=== PATIENT | female | born 1975 | race Caucasian/White ===

== ENCOUNTER 2020-11-04 09:41 | Outpatient (CLI) | payer BC ==
--- NOTE | 2020-11-04 11:11 | Ultrasound Report ---
PROCEDURE: Abdomen Complete INDICATIONS: ABN LIVER FUNCTION TESTS, EPIGASTRIC PAIN TECHNIQUE: Real-time scanning was performed of the abdominal and retroperitoneal organs, with image documentatio n. COMPARISON: None. FINDINGS: Liver: Liver is normal in size and homogeneous in echotexture. Gallbladder: Status post cholecystectomy. Biliary ducts: Mildly dilated intrahepatic and extra hepatic biliary duct, not unexpected in the post cholecystectomy setting. Pancreas: Mostly obscured by overlying bowel gas. Visualized portions of the pancreas are sonographi marycruz normal. Spleen: Spleen is normal in size and homogeneous in echotexture. Kidneys: Both kidneys normal in size and appearance. Aorta: Visualized aorta is normal in caliber at less than 3 cm. Iliacs: Proximal common iliac arteries are normal in caliber at less than 2.5 cm. IVC: Intrahepatic inferior vena cava is patent. Miscellaneous: No free abdominal fluid. IMPRESSION: Status post cholecystectomy. Mild intrahepatic and extra hepatic biliary ductal dilatation, likely re flective of postcholecystectomy reservoir phenomenon. Biliary tract obstruction is considered unlikel y although if there is clinical evidence of either biliary colic or choledocholithiasis, MRCP could b e considered. Reviewed by: Omari Stanford MD on 11/04/2020 11:10 AM PST Approved by: Omari Stanford MD on 11/04/2020 11:10 AM PST Station ID: [id number]
== END 2020-11-04 09:42 | disposition home or self-care (01) ==
LOC: DI 09:41
PROVIDERS: ATTEND Physician Assistant
DX: R94.5 Abnormal results of liver function studies (principal); R10.13 Epigastric pain; R63.4 Abnormal weight loss; Z90.49 Acquired absence of other specified parts of digestive tract

== ENCOUNTER 2021-08-06 18:10 | Emergency (ER) | payer BC ==
[2021-08-06] MEDS ORDERED: EPINEPHrine 1 MG/ML AMP IM STA (18:27)
[2021-08-06] MEDS ORDERED: DEXAMETHASONE 10 MG/ML VIAL IVP STA (18:27)
--- NOTE | 2021-08-06 18:29 | ED Physician Documentation ---
History of Present Illness - Stated complaint Stated Complaint: HIVES, SWOLLEN TONGUE & LIP - Chief complaint Chief Complaint: Allergic Rx - History obtained from History obtained from: Patient - Additonal information Additional information: 46-year-old woman without known allergies awoke at 3 this morning with migratory swelling especially of the lower lip and feeling like her voice is changed as w ell as itching all over and hives. Denies GI complaints. Not sure what caused it. No known allergens. She ate tomato and avocado before going to bed last night but that is not atypical for her. Review of Systems Constitutional: reports: Reviewed and negative Ears: reports: Reviewed and negative Nose: reports: Reviewed and negative Respiratory: reports: Reviewed and negative PD PAST MEDICAL HISTORY - Present Medications Home Medications: Ambulatory Orders Medication Instructions Recorded Confirmed EPINEPHrine [Epinephrine] 0.3 mg IJ ONCE PRN #2 syr 08/06/21 predniSONE [Deltasone] 60 mg PO DAILY 5 Days #15 tablet 08/06/21 - Allergies Allergies/Adverse Reactions: Allergies Allergy/AdvReac Type Severity Reaction Status Date / Time No Known Drug Allergies Allergy Verified 08/06/21 18:26 PD ED PE NORMAL - Vitals Vital signs reviewed: Yes - General General: Alert and oriented X 3, No acute distress - HEENT HEENT: Other (No current angioedema of the visualized lips or throat, that said she has a sensation of her voice being changed. She does have conjunctival injection.) - Neck Neck: Supple, no meningeal sign, No bony TTP - Cardiac Cardiac: RRR, No murmur - Respiratory Respiratory: No respiratory distress, Clear bilaterally - Abdomen Abdomen: Normal bowel sounds, Soft, Non tender - Derm Derm: Other (diffuse hives) - Neuro Neuro: Alert and oriented X 3, Normal speech Results - Vitals Vitals: Vital Signs - 24 hr 08/06/21 08/06/21 08/06/21 18:21 18:27 18:55 Temperature 36.6 C Heart Rate 71 66 91 Respiratory 18 16 17 Rate Blood Pressure 132/91 H 121/73 O2 Saturation 100 100 99 08/06/21 19:36 Temperature Heart Rate 72 Respiratory 18 Rate Blood Pressure 127/72 O2 Saturation 97 Oxygen O2 Source Room air PD MEDICAL DECISION MAKING - ED course ED course: 46-year-old woman with anaphylaxis to unknown substance as manifested by diffuse hives, resolved angioedema of the lips and changed voice and conjunctival injection. She was seen to immediately and had already taken Benadryl earlier. She was given IM epinephrine 0.3 mg and dexamethasone 10 mg IV. She was observed and her symptoms improved. Given the total time course of the illness I do not think she feeds a full period of observation as with very acute anaphylaxis. Departure - Departure Disposition: Home, Self Care Clinical Impression: Allergic urticaria Condition: Good Record reviewed to determine appropriate education?: Yes Instructions: ED Allergic Reaction General Other Prescriptions: predniSONE [Deltasone] 60 mg PO DAILY 5 Days #15 tablet EPINEPHrine [Epinephrine] 0.3 mg IJ ONCE PRN #2 syr PRN Reason: Allergy Symptoms Comments: Call your doctor to arrange a follow-up appointment, make the next available appointment. In the interim, return anytime if worse or if new symptoms develop. Discharge Date/Time: 08/06/21 19:37
[2021-08-06 19:36] VITALS: BP 127/72
== END 2021-08-06 19:37 | disposition home or self-care (01) ==
LOC: ED 18:10
DX: L50.0 Allergic urticaria (principal)
CPT/HCPCS: 96374; 99283

== ENCOUNTER 2021-08-08 00:08 | Emergency (ER) | payer BC ==
[2021-08-08] MEDS ORDERED: FAMOTIDINE 20 MG TABLET PO STA (00:43)
[2021-08-08] MEDS ORDERED: DEXAMETHASONE 10 MG/ML VIAL IM STA (00:43)
[2021-08-08] MEDS ORDERED: hydrOXYzine 50 MG/ML VIAL IM STA (00:44)
--- NOTE | 2021-08-08 00:55 | ED Physician Documentation ---
History of Present Illness - Stated complaint Stated Complaint: HIVES - Chief complaint Chief Complaint: Allergic Rx - History obtained from History obtained from: Patient - Additonal information Additional information: Patient comes emergency department chief complaint of ongoing hives and itching and burning skin. The patient was seen here on 08/06 for an apparent allergic reaction that had begun the day before. She does not really know what she was exposed to that caused the reaction; she states she ate some tomatoes and avocado before going to bed the night before but this was not unusual for her. Patient was seen here by my colleague after she noticed a swelling, tingling feeling in her lips and throat and then broke out in extensive urticaria. She was given a shot of epinephrine, as well as Decadron in the ED. She had already taken Benadryl and symptoms were already starting to improve by the time she came here. The patient states she took a dose of prednisone this morning, as well as has been taking 50 mg of Benadryl every 2 hours, but states nothing seems to be helping. She denies recurrence of the swelling tingling feeling in her lips and throat, but states that the urticaria have remained at the same level of intensity, and are present over an her entire body, including one of her eyelids and her lips. Patient denies any new medications. No history of allergies to anything else. No fever or chills. Mild nausea. No difficulty breathing or lightheadedness. No other complaints at this time. Review of Systems Ten Systems: 10 systems reviewed and negative Constitutional: reports: Reviewed and negative Eyes: reports: Reviewed and negative Ears: reports: Reviewed and negative Nose: reports: Reviewed and negative Throat: reports: Reviewed and negative Cardiac: reports: Reviewed and negative Respiratory: reports: Reviewed and negative GI: reports: Reviewed and negative : reports: Reviewed and negative Skin: reports: Rash Musculoskeletal: reports: Reviewed and negative Neurologic: reports: Reviewed and negative Psychiatric: reports: Reviewed and negative Endocrine: reports: Reviewed and negative Immunocompromised: reports: Reviewed and negative PD PAST MEDICAL HISTORY - Past Medical History Past Medical History: No - Past Surgical History Past Surgical History: Yes General: 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 Medications Home Medications: Ambulatory Orders Medication Instructions Recorded Confirmed EPINEPHrine [Epinephrine] 0.3 mg IJ ONCE PRN #2 syr 08/06/21 08/08/21 predniSONE [Deltasone] 60 mg PO DAILY 5 Days #15 tablet 08/06/21 08/08/21 Famotidine [Pepcid] 20 mg PO BID #10 tablet 08/08/21 hydrOXYzine HCL [Hydroxyzine HCl] 25 mg PO Q6HR PRN #16 tablet 08/08/21 - Allergies Allergies/Adverse Reactions: Allergies Allergy/AdvReac Type Severity Reaction Status Date / Time No Known Drug Allergies Allergy Verified 08/08/21 00:11 - Social History Does the pt smoke?: No Smoking Status: Never smoker Does the pt drink ETOH?: Yes ETOH Use: Wine Does the pt have substance abuse?: No - Immunizations Immunizations are current?: No Immunizations: TDAP >10years/unknown - POLST Patient has POLST: No PD ED PE NORMAL - Vitals Vital signs reviewed: Yes - General General: Alert and oriented X 3, No acute distress, Well developed/nourished - HEENT HEENT: Atraumatic, PERRL, EOMI, Moist mucous membranes, Other (No oral or facial swelling. Patient's voice is normal.) - Neck Neck: Supple, no meningeal sign - Cardiac Cardiac: RRR, No murmur, Strong equal pulses - Respiratory Respiratory: No respiratory distress, Clear bilaterally - Abdomen Abdomen: Soft, Non tender, Non distended - Derm Derm: Warm and dry, Other (Extensive urticaria over all extremities and trunk. Present to a lesser degree on neck and only scant lesions noted on face.) - Extremities Extremities: No deformity - Neuro Neuro: Alert and oriented X 3 - Psych Psych: Normal mood, Normal affect Results - Vitals Vitals: Vital Signs - 24 hr 08/08/21 08/08/21 00:11 01:21 Temperature 36.5 C 36.9 C Heart Rate 80 58 L Respiratory 16 16 Rate Blood Pressure 152/89 H 121/55 L O2 Saturation 99 99 Oxygen O2 Source Room air PD MEDICAL DECISION MAKING - ED course Complexity details: considered differential, d/w patient ED course: The patient has had symptoms for approximately 1/2 days, and I discussed with her that she most likely still in the midst of her reaction running its course. She is not on any H2 aleksandar, so we will add Pepcid and have given her a dose here. I have also boosted history she was having IM dose of Decadron in the emergency department. I have given her a prescription for hydroxyzine, patient which she may substitute for the Benadryl if she would like to try something different. At this point in time, there is no evidence of anaphylaxis your emergent condition has been found. We have discussed the need for follow-up and the usual indications for return. Departure - Departure Disposition: 01 Home, Self Care Clinical Impression: Allergic urticaria Condition: Stable Instructions: ED Allergic Reaction General Other Prescriptions: hydrOXYzine HCL [Hydroxyzine HCl] 25 mg PO Q6HR PRN #16 tablet PRN Reason: Itching Famotidine [Pepcid] 20 mg PO BID #10 tablet Comments: You are on the right medications for an allergic reaction and mostly, there is just amount of waiting out the reaction. Most allergic outbreaks resolve themselves in 2 to 4 days. Please call your doctor first thing in the morning to schedule a follow-up appointment for later this week in case you are still having issues after the next few days. In the meantime, you may add the Pepcid to your medication regimen, and you may also substitute the hydroxyzine for the Benadryl. Please continue to take your prednisone as prescribed. Please also avoid anything to which you think you may be allergic. Discharge Date/Time: 08/08/21 01:23
[2021-08-08 01:24] VITALS: BP 121/55
== END 2021-08-08 01:23 | disposition home or self-care (01) ==
LOC: ED 00:08
DX: L50.0 Allergic urticaria (principal)
CPT/HCPCS: 96372; 99282; 99283; A9270

== ENCOUNTER 2022-08-19 16:03 | Emergency (ER) | payer BC ==
[2022-08-19 16:14] VITALS: BP 112/70
[2022-08-19] MEDS ORDERED: predniSONE 20 MG TABLET PO STA (16:41)
--- NOTE | 2022-08-19 16:43 | ED Physician Documentation ---
History of Present Illness - Stated complaint Stated Complaint: BACK PX - Chief complaint Chief Complaint: Back Pain - Additonal information Additional information: 47-year-old female presents emergency department for evaluation of acute low back pain that she woke up with about 1-1/2 weeks ago. Pain is described as sharp and radiates across the lower lumbar region. Does not extend down the legs. She has been alternating 800 of Motrin, 500 and naproxen as well as Tylenol without relief of symptoms. She did go to a chiropractor earlier this week and did not feel that the symptoms improved. She has no fevers. No saddle anesthesia or loss of bowel or bladder function. No history of cancer or intravenous drug use. She finds that the best position of comfort is one standing and leaning forward. She does not have a primary care provider. 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 - Present Medications Home Medications: Ambulatory Orders Medication Instructions Recorded Confirmed EPINEPHrine [Epinephrine] 0.3 mg IJ ONCE PRN #2 syr 08/06/21 08/08/21 predniSONE [Deltasone] 60 mg PO DAILY 5 Days #15 tablet 08/06/21 08/08/21 Famotidine [Pepcid] 20 mg PO BID #10 tablet 08/08/21 hydrOXYzine HCL [Hydroxyzine HCl] 25 mg PO Q6HR PRN #16 tablet 08/08/21 Cyclobenzaprine [Flexeril] 10 mg PO TID PRN #20 tablet 08/19/22 predniSONE [Deltasone] 40 mg PO DAILY 5 Days #10 tablet 08/19/22 - Allergies Allergies/Adverse Reactions: Allergies Allergy/AdvReac Type Severity Reaction Status Date / Time No Known Drug Allergies Allergy Verified 08/19/22 16:15 - Social History Does the pt smoke?: No Smoking Status: Never smoker Does the pt drink ETOH?: Yes Does the pt have substance abuse?: No - Immunizations Immunizations are current?: No Immunizations: TDAP >10years/unknown - POLST Patient has POLST: No PD ED PE NORMAL - General General: Alert and oriented X 3, No acute distress (Appears to be uncomfortable and in pain) - HEENT HEENT: Atraumatic - Cardiac Cardiac: RRR, No murmur - Respiratory Respiratory: No respiratory distress, Clear bilaterally - Abdomen Abdomen: Normal bowel sounds, Soft - Back Back: Other (negative straight leg bilaterally). No: No spinal TTP (Pain elicited with palpation of the bilateral lower lumbar spinous muscles. No mi dline tenderness was elicited. She prefers to be in a mildly forward flexed position but cannot fully bend over. She has an antalgic but unassisted gait. Motor strength is 5 of 5. 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 No red flags on history or exam. Low suspicion for spinal epidural abscess. She has seemingly tried routine conservative care measures including appropriate NSAID and Tylenol use. She did drive here therefore we cannot administer narcotic in the ER. I feel that she would likely benefit from a short course of steroids and will start her on a 5-day course of prednisone. I have declined opiates as a primary analgesia but will prescribe a muscle relaxer. I am encouraging the patient to follow closely with a primary care doctor for longer-term management and evaluation. We did discuss emergent return precautions as well as the red flags of back pain. Departure - Departure Disposition: 01 Home, Self Care Clinical Impression: Low back pain Qualifiers: Chronicity: acute Back pain laterality: bilateral Sciatica presence: without sciatica Qualified Code(s): M54.50 - Low back pain, unspecified Condition: Stable Record reviewed to determine appropriate education?: Yes Instructions: ED Spasm Back No Trauma, ED Back Care Tips Follow-Up: Kendal Pepper PA-C [Provider Admit Priv/Credential] - Prescriptions: predniSONE [Deltasone] 40 mg PO DAILY 5 Days #10 tablet Cyclobenzaprine [Flexeril] 10 mg PO TID PRN #20 tablet PRN Reason: Spasms Comments: Ximena you were seen today in the emergency department because of a week and a half of pain in your low back. You do not recall any history of falls or trauma. I suspect that the cause of your pain is either simply low muscle strain or even a disc herniation. In order to help manage the pain I would like you to take 500 mg of Tylenol with food 2-3 times a day. Please take ibuprofen 600 mg only with food 2-3 times a day. I am sending a prescription for Flexeril and muscle relaxer to the pharmacy. This can be sedating so you may want to consider taking it at night only or on days where you do not have to work or leave the home. I suspect that the inflammation will get markedly better over the next 48 to 72 hours by starting a course of steroids. Your first dose was given here in the emergency department tonight. Please be careful and aware that it can cause insomnia in some patients. I have given you the name of Anisha CAMARILLO who is assigned to see patients in follow-up of their ER visits this week. Please call the office tomorrow to arrange follow-up. Alternatively you can follow-up at one of our local walk-in clinics in [place]. Most back pain will begin to resolve after a few weeks. If you find that your symptoms are worsening, you lose control of your bowel or bladder function or have numbness in your genital area you should return immediately to the ER for a second evaluation.
== END 2022-08-19 17:08 | disposition home or self-care (01) ==
LOC: ED 16:03
DX: M54.50 Low back pain, unspecified (principal)
CPT/HCPCS: 99282; 99284; J7512

== ENCOUNTER 2022-08-21 07:00 | Outpatient (CLI) | payer BC ==
--- NOTE | 2022-08-21 16:21 | XRAY Report ---
PROCEDURE: Lumbar Spine 2 View INDICATIONS: LUMBAGO WITH SCIATICA, L SIDE TECHNIQUE: 2 views of the lumbar spine were acquired. COMPARISON: None. FINDINGS: Bones: 5 [id number] vertebrae are present. There is normal bony alignment. No vertebral body compression fractures. No suspicious bony lesions. Soft tissues: Overlying bowel gas pattern is normal. No suspicious soft tissue calcifications. Chol ecystectomy clips. IMPRESSION: No acute osseous lesion. If there is continued clinical concern for pathology, then MRI should be con sidered for further evaluation. Reviewed by: Salma Batista MD, PhD on 08/21/2022 4:19 PM PST Approved by: Salma Batista MD, PhD on 08/21/2022 4:19 PM PST Station ID: [id number]
== END 2022-08-21 23:59 | disposition home or self-care (01) ==
LOC: DI.N 07:00
PROVIDERS: ATTEND Registered Nurse
DX: M54.42 Lumbago with sciatica, left side (principal)

== ENCOUNTER 2022-11-22 22:10 | Emergency (ER) | payer SELFPAY ==
[2022-11-23 01:24] VITALS: BP 106/57
--- NOTE | 2022-11-23 02:00 | ED Physician Documentation ---
History of Present Illness - Stated complaint Stated Complaint: HIGH ANXIETY - Chief complaint Chief Complaint: MHE - Additonal information Additional information: Patient is 47-year-old female presenting to the emergency department with comp laint of anxiety and difficulty sleeping. Endorses for history of recently losing a 16-year-old son. States that she has had extremely high anxiety since that time with difficulty sleeping and difficulty functioning. Was seen at this facility on the third and prescribed lorazepam. Reports that these did seem to help and is requesting a another prescription for lorazepam. Denies suicidality or homicidality. Denies auditory or visual hallucinations. Review of Systems Constitutional: denies: Fever Eyes: denies: Loss of vision Ears: denies: Loss of hearing Nose: denies: Rhinorrhea / runny nose Throat: denies: Dental pain / toothache Cardiac: denies: Chest pain / pressure Respiratory: denies: Dyspnea GI: denies: Abdominal Pain : denies: Dysuria Skin: denies: Rash Musculoskeletal: denies: Neck pain Neurologic: denies: Generalized weakness Psychiatric: reports: Depressed, Anxiety, Insomnia Endocrine: denies: Polydypsia Immunocompromised: denies: Immunocompromised PD PAST MEDICAL HISTORY - Past Medical History Past Medical History: Yes - Past Surgical History Past Surgical History: Yes General: 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 - Present Medications Home Medications: Ambulatory Orders Medication Instructions Recorded Confirmed LORazepam [Ativan] 0.5 mg PO PRN PRN #3 tablet 11/23/22 - Allergies Allergies/Adverse Reactions: Allergies Allergy/AdvReac Type Severity Reaction Status Date / Time No Known Drug Allergies Allergy Verified 11/22/22 22:23 - Social History Does the pt smoke?: No Smoking Status: Never smoker Does the pt drink ETOH?: Yes Does the pt have substance abuse?: No - Immunizations Immunizations are current?: No Immunizations: TDAP >10years/unknown - POLST Patient has POLST: No PD ED PE NORMAL - General General: Alert and oriented X 3, No acute distress - HEENT HEENT: Atraumatic - Respiratory Respiratory: No respiratory distress - Neuro Neuro: Alert and oriented X 3, 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 Endorse for history of recently losing her teenage son. Afebrile, otherwise hemodynamically stable on arrival to the emergency department. Was resting comfortably in gurney during time of my evaluation. Did appear to have a flattened affect. Denied suicidal or homicidal ideations. There is no evidence of internal fixation or active auditory or visual hallucination on exam. During a previous ER visit she had received a prescription for lorazepam. She did specifically request this medication. I expressed my reticence about treating bereavement with benzodiazepine. We discussed the dangers of benzodiazepine includingTheir habit-forming nature as well as the limited evidence that benzodiazepines have a positive impact on depression, or complicated grief. I did offer to allow her to board in the emergency department until the morning so that she could discuss her symptoms with one of our mental health social workers with the hopes that they would be able to expedite establishing her with local area mental health/grief counseling or other resources. She declined this intervention stating that she wished to go home.She did report that she is in the process of seeking care with a grief counselor through hospice. At her request I did order for a single dose here in the emergency department. Additionally I did agree to write her for a total of 3 0.5 mg tablets to have at home. Will discharge at this time with some resources for local area crisis counseling. Encouraged return to the emergency department for any thoughts of self-harm or worsening symptoms. Departure - Departure Disposition: Home, Self Care Clinical Impression: Grief at loss of child Instructions: ED Stress React, ED Depression Prescriptions: LORazepam [Ativan] 0.5 mg PO PRN PRN #3 tablet PRN Reason: Anxiety Comments: Thank you for allowing us to care for you today [facility]. Prescription sent electronically to [facility]. I am very sorry for your loss. As we discussed I have written you for a small number of lorazepam to have at home. Please be aware however that these medications are very habit-forming and that there use in situations of grief and bereavement Have never shown long-term benefit. I like you to continue to work with hospice to get connected with a grief counselor. Attached is some information about local area resources that may be of help to you as well. Our emergency department also has mental health social workers who are available most weekdays. If it anytime you have new or worsening symptoms or if you find yourself having thoughts of self-harm please return to the emergency department.
[2022-11-23] MEDS ORDERED: LORazepam 1 MG TABLET PO STA (02:27)
--- NOTE | 2022-11-27 17:18 | ED Physician Documentation ---
ED Addendum - Addendum Addendum: 11/27/22 17:17 The patient called to check on her Ativan prescription from Dr. Chacko. I reviewed the prescription and it appears that a frequency was not put on the prescription, therefore was not able to be filled. Therefore the prescription was rewritten and resent to [facility] pharmacy.
== END 2022-11-23 02:41 | disposition home or self-care (01) ==
LOC: ED 22:10
DX: F43.21 Adjustment disorder with depressed mood (principal)
CPT/HCPCS: 99283; J8499